=== PATIENT | female | born 1985 ===

== ENCOUNTER 2020-11-15 00:43 | Emergency (ER) | payer OTHER ==
[~2020-11-15 00:43] MED LIST: Metoclopramide 10 MG/2 ML SDV IVPUSH ONE
--- NOTE | 2020-11-15 00:46 | EDM.PDOC ---
"ED HPI GENERAL MEDICAL PROBLEM - General Stated Complaint: AMBULANCE Time Seen by Provider: 11/15/20 00:38 Source of Information: Reports: Patient History Limitations: Reports: No Limitations - History of Present Illness INITIAL COMMENTS - FREE TEXT/NARRATIVE: This 35 yo female patient was brought to the ED by [facility] due to a possible seizure and fall. EMS brought the patient to the ED in a C-collar and on a scoop stretcher. The patient reports feeling very nauseated at the time of arrival. The patient has a laceration to her lower lip and chin. The patient reports a possibility of at this time. The patient reports she was at a wedding dance when she started to feel lightheaded. The patient went up to the bar to get water when she does not remember the rest. The patient's reports he noticed a lot of commotion over near the bar when he saw the patient on the ground. The patient reports pain to the right side of her face, to her lower lip and to her chin at this time. Onset: Today Duration: Minutes: Location: Reports: Head, Face, Neck Quality: Reports: Pressure Severity: Moderate Improves with: Reports: None Worsens with: Reports: None Context: Reports: Other Associated Symptoms: Reports: No Other Symptoms Bilateral Jaw Pain Score (Numeric/FACES): 6 - Related Data Allergies Allergy/AdvReac Type Severity Reaction Status Date / Time No Known Allergies Allergy Verified 11/15/20 00:51 Home Meds: Home Meds . [No Known Home Meds] 11/15/20 [History] ED ROS GENERAL - Review of Systems Review Of Systems: Comprehensive ROS is negative, except as noted in HPI. - Physical Exam Exam: See Below Exam Limited By: No Limitations General Appearance: Alert, WD/WN, Mild Distress Eye Exam: Bilateral Eye: EOMI, Normal Inspection, PERRL Ears: Normal External Exam, Normal Canal, Hearing Grossly Normal, Normal TMs Nose: Normal Inspection, Normal Mucosa, No Blood Throat/Mouth: Normal Teeth, Normal Gums, Normal Oropharynx, Normal Voice, No Airway Compromise, Other (lower lip laceration) Head Exam: Facial Tenderness (right side of face, lower lip and jaw pain) Neck: Other (Trachea was midline) Respiratory/Chest: No Respiratory Distress, Lungs Clear, Normal Breath Sounds, No Accessory Muscle Use, Chest Non-Tender Cardiovascular: Normal Peripheral Pulses, Regular Rate, Rhythm, No Edema, No Gallop, No JVD, No Murmur, No Rub GI/Abdominal: Normal Bowel Sounds, Soft, Non-Tender, No Organomegaly, No Distention, No Abnormal Bruit, No Mass (Female) Exam: Deferred Rectal (Female) Exam: Deferred Neuro Exam (Abbreviated): Alert, Oriented, CN II-XII Intact, Normal Cognition, Normal Gait, Normal Reflexes, No Motor/Sensory Deficits Back Exam: Normal Inspection, Full Range of Motion, NT Extremities: Normal Inspection, Normal Range of Motion, Non-Tender, No Pedal Edema, Normal Capillary Refill Psychiatric: Normal Affect, Normal Mood Skin Exam: Warm, Dry, Normal Color, No Rash, Wound/Incision (laceration to lower lip and chin) ED PROCEDURES - Laceration/Wound Repair Left Lower Face Lac/wound length in cm: 2.0 Appearance: Subcutaneous Distal NVT: Neuro & Vascular Intact Anesthetic Type: Local Local Anesthesia - Lidocaine (Xylocaine): 1% Plain Local Anesthetic Volume: 3cc Skin Prep: Chlorhexidine (Hibiciens) Exploration/Debridement/Repair: Wound Explored, Foreign Material Removed Closed with: Sutures Suture Size: 5-0 # of Sutures: 6 Suture Type: Prolene, Interrupted, Simple Drain Placement: No Sterile Dressing Applied: Nurse Tetanus Status Addressed: Yes Complications: No Left Upper Neck Lac/wound length in cm: 2.0 Appearance: Subcutaneous Distal NVT: Neuro & Vascular Intact Anesthetic Type: Local Local Anesthesia - Lidocaine (Xylocaine): 1% Plain Local Anesthetic Volume: 3cc Skin Prep: Chlorhexidine (Hibiciens), Saline Exploration/Debridement/Repair: Wound Explored, In a Bloodless Field, Explored to Base Closed with: Sutures Suture Size: 5-0 # of Sutures: 5 Suture Type: Prolene, Interrupted, Simple Drain Placement: No Sterile Dressing Applied: Nurse Tetanus Status Addressed: Yes Complications: No Course - Vital Signs Last Recorded V/S: Last Vital Signs Temp 97.4 F 11/15/20 00:46 Pulse 88 11/15/20 00:46 Resp 18 11/15/20 00:46 BP 106/73 11/15/20 00:46 Pulse Ox 100 11/15/20 00:46 - Orders/Labs/Meds Orders: Active Orders 24 hr Category Date Time Status Cervical Spine wo Cont [CT] Urgent Exams 11/15/20 01:06 Ordered Head wo Cont [CT] Urgent Exams 11/15/20 01:06 Ordered Max Facial Sinus wo Cont [CT] Urgent Exams 11/15/20 01:06 Ordered DRUG SCREEN URINE BIORAD [URCHEM] Stat Lab 11/15/20 00:33 Ordered UA RFX RAFFI AND CULT IF INDIC [URIN] Urgent Lab 11/15/20 00:33 Ordered Labs: Laboratory Tests 11/15/20 11/15/20 11/15/20 Range/Units 00:42 00:42 00:42 WBC 4.3 L (5.0-10.0) 10^3/uL RBC 4.23 (4.2-5.4) 10^6/uL Hgb 11.8 L (12.0-16.0) g/dL Hct 35.6 L (37.0-47.0) % MCV 84.2 (80-100) fL MCH 27.9 (27.0-34.0) pg MCHC 33.1 (33.0-35.0) g/dL Plt Count 149 L (150-450) 10^3/uL Neut % (Auto) 53.4 (42.2-75.2) % Lymph % (Auto) 38.3 (20.5-50.1) % Luce % (Auto) 6.5 (2-8) % Eos % (Auto) 1.6 (1.0-3.0) % Baso % (Auto) 0.2 (0.0-1.0) % Sodium 142 (136-145) mmol/L Potassium 2.9 L (3.5-5.1) mmol/L Chloride 102 (98-107) mmol/L Carbon Dioxide 26 (21-32) mmol/L Anion Gap 16.9 H (7-13) mEq/L BUN 9 (7-18) mg/dL Creatinine 0.86 (0.55-1.02) mg/dL Est Cr Clr Drug Dosing TNP Estimated GFR (MDRD) > 60 BUN/Creatinine Ratio 10.5 (No establ ref range) Glucose 98 (70-99) mg/dL Calcium 8.4 L (8.5-10.1) mg/dL Total Bilirubin 0.3 (0.2-1.0) mg/dL AST 40 H (15-37) U/L ALT 25 (14-59) U/L Alkaline Phosphatase 59 (46-116) U/L Total Protein 6.6 (6.4-8.2) g/dL Albumin 3.6 (3.4-5.0) g/dL Globulin 3.0 Albumin/Globulin Ratio 1.2 HCG, Qual Negative Ethyl Alcohol 34 (0) mg/dL Meds: Medications Discontinued Medications Generic Name Dose Route Start Last Admin Trade Name Freq PRN Reason Stop Dose Admin Bacitracin 1 dose 11/15/20 01:28 Bacitracin Oint 1 Gm U/D Packet TOP 11/15/20 01:29 ONETIME ONE Lidocaine HCl 30 ml 11/15/20 01:28 Lidocaine 1% 30 Ml Sdv INJECT 11/15/20 01:29 ONETIME ONE Metoclopramide HCl 10 mg 11/15/20 00:40 11/15/20 00:45 Metoclopramide 10 Mg/2 Ml Sdv IVPUSH 11/15/20 00:41 10 mg ONETIME ONE Administration - Radiology Interpretation Free Text/Narrative:: [facility] Final Radiology Report Call: [phone] assistance Online chat: [email or web address] Name: [email or web address] GOULD Age: 35Years F Date: 11/15/2020 SSN: -- : 1985 Study: CT MAX FACIAL SINUS WO CONT Requesting Physician: Lenny Candelaria Images: [phone] Addl Studies: Provided Clinical History: Ground level fall Contrast: Without Contrast Medium: Contrast Amount: Contrast Method: CONFIDENTIALITY STATEMENT This report is intended only for use by the referring physician, and only in accordance with law. If you received this in error, call [phone]. Page 1 of 1 PROCEDURE INFORMATION: Exam: CT Maxillofacial Without Contrast Exam date and time: 11/15/2020 1:23 AM Age: 35 years old Clinical indication: Other: Fall--laceration on chin; Additional info: Ground level fall TECHNIQUE: Imaging protocol: Computed tomography images of the face without contrast. Radiation optimization: All CT scans at this facility use at least one of these dose optimization techniques: automated exposure control; mA and/or kV adjustment per patient size (includes targeted exams where dose is matched to clinical indication); or iterative reconstruction. COMPARISON: No relevant prior studies available. FINDINGS: Orbital cavity: Orbits are normal. Globes are unremarkable. Bones/joints: No fracture. Paranasal sinuses: Normal. No air-fluid levels. Soft tissues: Unremarkable. IMPRESSION: No fracture. Thank you for allowing us to participate in the care of your patient. Dictated and Authenticated by: Dax Carmona DO 11/15/2020 2:42 AM Central Time ([place] & [place]) [facility] Final Radiology Report Call: [phone] assistance Online chat: [email or web address] Name: [email or web address] GOULD Age: 35Years F Date: 11/15/2020 SSN: -- : 1985 Study: CT CERVICAL SPINE WO CONT Requesting Physician: Lenny Candelaria Images: [phone] Addl Studies: Provided Clinical History: Ground level fall Contrast: Without Contrast Medium: Contrast Amount: Contrast Method: Page 1 of 2 PROCEDURE INFORMATION: Exam: CT Cervical Spine Without Contrast Exam date and time: 11/15/2020 1:23 AM Age: 35 years old Clinical indication: Other: Fall; Additional info: Ground level fall TECHNIQUE: Imaging protocol: Computed tomography images of the cervical spine without contrast. Radiation optimization: All CT scans at this facility use at least one of these dose optimization techniques: automated exposure control; mA and/or kV adjustment per patient size (includes targeted exams where dose is matched to clinical indication); or iterative reconstruction. COMPARISON: No relevant prior studies available. FINDINGS: Bones/joints: There is normal vertebral body alignment. There are normal vertebral body heights. The dens is intact. The lateral masses of C1 are symmetric. No fracture. Discs/Spinal canal/Neural foramina: Craniocervical articulation is normal. Atlantodental interval and prevertebral soft tissues are normal. Disc spaces are symmetric and maintained. Lungs: Lung apices are normal. Soft tissues: Unremarkable. IMPRESSION: No fracture. Thank you for allowing us to participate in the care of your patient. Dictated and Authenticated by: Dax Carmona DO JARORD GOULD | Final Radiology Report CONFIDENTIALITY STATEMENT This report is intended only for use by the referring physician, and only in accordance with law. If you received this in error, call [phone]. Page 2 of 2 11/15/2020 2:39 AM Central Time ([place] & [place]) [facility] Final Radiology Report Call: [phone] assistance Online chat: [email or web address] Name: [email or web address] GOULD Age: 35Years F Date: 11/15/2020 SSN: -- : 1985 Study: CT HEAD WO CONT Requesting Physician: Lenny Candelaria Images: [id number] Addl Studies: Provided Clinical History: Ground level fall Contrast: Without Contrast Medium: Contrast Amount: Contrast Method: Page 1 of 2 PROCEDURE INFORMATION: Exam: CT Head Without Contrast Exam date and time: 11/15/2020 1:23 AM Age: 35 years old Clinical indication: Other: Fall; Additional info: Ground level fall TECHNIQUE: Imaging protocol: Computed tomography of the head without contrast. Radiation optimization: All CT scans at this facility use at least one of these dose optimization techniques: automated exposure control; mA and/or kV adjustment per patient size (includes targeted exams where dose is matched to clinical indication); or iterative reconstruction. COMPARISON: No relevant prior studies available. FINDINGS: Brain: No acute infarct or hemorrhage. Cerebral ventricles: No ventriculomegaly. Paranasal sinuses: Paranasal sinuses are clear. No air-fluid level. Mastoid air cells: Visualized mastoid air cells are clear. Bones/joints: No calvarial or skull base fracture. Soft tissues: Unremarkable. IMPRESSION: 1. No calvarial or skull base fracture. 2. No acute infarct or hemorrhage. Thank you for allowing us to participate in the care of your patient. Dictated and Authenticated by: Dax Carmona DO JARROD GOULD | Final Radiology Report CONFIDENTIALITY STATEMENT This report is intended only for use by the referring physician, and only in accordance with law. If you received this in error, call [phone]. Page 2 of 2 11/15/2020 2:41 AM Central Time ([place] & [place]) Departure - Departure Time of Disposition: 03:03 Disposition: Home, Self-Care 01 Condition: Fair Clinical Impression: Syncope and collapse Facial contusion Qualifiers: Encounter type: initial encounter Qualified Code(s): S00.83XA - Contusion of other part of head, initial encounter Facial laceration Qualifiers: Encounter type: initial encounter Qualified Code(s): S01.81XA - Laceration without foreign body of other part of head, initial encounter Chin laceration Qualifiers: Encounter type: initial encounter Qualified Code(s): S01.81XA - Laceration without foreign body of other part of head, initial encounter - Discharge Information *PRESCRIPTION DRUG MONITORING PROGRAM REVIEWED*: Not Applicable *COPY OF PRESCRIPTION DRUG MONITORING REPORT IN PATIENT INNA: Not Applicable Instructions: Facial Laceration, [id number], Syncope, [id number], Sutures, Jan, or Adhesive Wound Closure, [id number] Forms: ED Department Discharge Care Plan Goals: The patient was advised of the examination, lab and CT (Head, Facial and Neck) results during the visit. The patient's laceration margins were well approximated during the visit. The patient should have the sutures removed from her lip in about 5 days. The sutures to the patient's chin should be removed in 10-14 days. The patient was given a Tetanus injection while in the ED. If the patient has any additional symptoms or concerns, the patient should either return to the emergency department or visit her primary care facility. Sepsis Event Note (ED) - Focused Exam Vital Signs: Vital Signs Temp Pulse Resp BP Pulse Ox 11/15/20 00:46 97.4 F 88 18 106/73 100 - My Orders Last 24 Hours: My Active Orders 11/15/20 00:33 DRUG SCREEN URINE BIORAD [URCHEM] Stat UA RFX RAFFI AND CULT IF INDIC [URIN] Urgent 11/15/20 01:06 Cervical Spine wo Cont [CT] Urgent Head wo Cont [CT] Urgent Max Facial Sinus wo Cont [CT] Urgent - Assessment/Plan Last 24 Hours: My Active Orders 11/15/20 00:33 DRUG SCREEN URINE BIORAD [URCHEM] Stat UA RFX RAFFI AND CULT IF INDIC [URIN] Urgent 11/15/20 01:06 Cervical Spine wo Cont [CT] Urgent Head wo Cont [CT] Urgent Max Facial Sinus wo Cont [CT] Urgent"
[2020-11-15 01:07] LABS: ANION GAP 16.9 mEq/L (7-13); CHLORIDE,CL 102 mmol/L (98-107); SODIUM,NA 142 mmol/L (136-145)
[2020-11-15] MEDS ORDERED: Bacitracin Oint 1 GM U/D Packet TOP ONE (01:28)
[2020-11-15] MEDS ORDERED: Lidocaine 1% 30 ML SDV INJECT ONE (01:28)
--- NOTE | 2020-11-15 02:39 | CT ---
PROCEDURE INFORMATION: Exam: CT Cervical Spine Without Contrast Exam date and time: 11/15/2020 1:23 AM Age: 35 years old Clinical indication: Other: Fall; Additional info: Ground level fall TECHNIQUE: Imaging protocol: Computed tomography images of the cervical spine without contrast. Radiation optimization: All CT scans at this facility use at least one of these dose optimization techniques: automated exposure control; mA and/or kV adjustment per patient size (includes targeted exams where dose is matched to clinical indication); or iterative reconstruction. COMPARISON: No relevant prior studies available. FINDINGS: Bones/joints: There is normal vertebral body alignment. There are normal vertebral body heights. The dens is intact. The lateral masses of C1 are symmetric. No fracture. Discs/Spinal canal/Neural foramina: Craniocervical articulation is normal. Atlantodental interval and prevertebral soft tissues are normal. Disc spaces are symmetric and maintained. Lungs: Lung apices are normal. Soft tissues: Unremarkable. IMPRESSION: No fracture.
--- NOTE | 2020-11-15 02:41 | CT ---
PROCEDURE INFORMATION: Exam: CT Head Without Contrast Exam date and time: 11/15/2020 1:23 AM Age: 35 years old Clinical indication: Other: Fall; Additional info: Ground level fall TECHNIQUE: Imaging protocol: Computed tomography of the head without contrast. Radiation optimization: All CT scans at this facility use at least one of these dose optimization techniques: automated exposure control; mA and/or kV adjustment per patient size (includes targeted exams where dose is matched to clinical indication); or iterative reconstruction. COMPARISON: No relevant prior studies available. FINDINGS: Brain: No acute infarct or hemorrhage. Cerebral ventricles: No ventriculomegaly. Paranasal sinuses: Paranasal sinuses are clear. No air-fluid level. Mastoid air cells: Visualized mastoid air cells are clear. Bones/joints: No calvarial or skull base fracture. Soft tissues: Unremarkable. IMPRESSION: 1. No calvarial or skull base fracture. 2. No acute infarct or hemorrhage.
--- NOTE | 2020-11-15 02:43 | CT ---
PROCEDURE INFORMATION: Exam: CT Maxillofacial Without Contrast Exam date and time: 11/15/2020 1:23 AM Age: 35 years old Clinical indication: Other: Fall--laceration on chin; Additional info: Ground level fall TECHNIQUE: Imaging protocol: Computed tomography images of the face without contrast. Radiation optimization: All CT scans at this facility use at least one of these dose optimization techniques: automated exposure control; mA and/or kV adjustment per patient size (includes targeted exams where dose is matched to clinical indication); or iterative reconstruction. COMPARISON: No relevant prior studies available. FINDINGS: Orbital cavity: Orbits are normal. Globes are unremarkable. Bones/joints: No fracture. Paranasal sinuses: Normal. No air-fluid levels. Soft tissues: Unremarkable. IMPRESSION: No fracture.
[2020-11-15] MEDS ORDERED: Diphtheria,Pertussis(Acell),Tetanus Vaccine 0.5 ML Syringe IM ONE (03:03)
[2020-11-15] MEDS ORDERED: Acetaminophen 500 MG Tab PO ONE (03:11)
== END 2020-11-15 03:54 | disposition home or self-care (01) ==
LOC: DL.ED 00:43
DX: S01.81XA Laceration without foreign body of other part of head, initial encounter (principal); S01.511A Laceration without foreign body of lip, initial encounter; R55 Syncope and collapse; Z23 Encounter for immunization; W18.39XA Other fall on same level, initial encounter; Y93.41 Activity, dancing
CPT/HCPCS: 12001; 12011; 36415; 70450; 70486; 72125; 80053; 80307; 84703; 85025; 90471; 90715; 96374; 99284; 99284-25; A9270-GY; J2765